=== PATIENT | female | born 1950 | race Hispanic/Latino ===

== ENCOUNTER 2021-05-16 08:51 | Observation (INO) | payer MEDICARE ==
[2021-05-01 11:52] LABS: ANION GAP 15.5 mmol/L (8-16); CALCIUM 9.7 mg/dL (8.4-10.2); CREATININE, SERUM 1.22 mg/dL (0.57-1.11); POTASSIUM 4.5 mmol/L (3.5-5.1)
[~2021-05-16 08:51] MED LIST: AMLODIPINE BESY10 MG PO; ARIMIDEX1 MG PO; BACLOFEN10 MG PO; CYCLOBENZAPRINE10 MG PO; FLONASE ALLERG9.9 ML INH; HYDROCODON-ACE1 EAC9 PO; LASIX40 MG PO; LEVOTHYROXINE75 MCG PO; LEXAPRO20 MG PO; LYRICA50 MG PO; MOBIC7.5 MG PO; NEXIUM40 MG PO; PROLIA60 MG/1 ML IM; ROPIVACAINE 246.25 MG, EPINEPHRINE HCL 1:1000 1ML 0.5 MG, CLONIDINE HCL 0.08 MG, KETORO... INJ ONE; SIMVASTATIN40 MG PO; TRULICITY0.75 MG/0. INJ; VALSARTAN PO; VIBRAMYCIN100 MG PO
[2021-05-16] MEDS ORDERED: SODIUM CHLORIDE 0.9% 50ML 100 ML ONE (10:24)
[2021-05-16] MEDS ORDERED: DEXAMETHASONE SOD PHOS 10 MG/1 ML VIAL ONE (10:47)
[2021-05-16] MEDS ORDERED: GABAPENTIN 300 MG CAP ONE (10:47)
[2021-05-16] MEDS ORDERED: CELECOXIB 200 MG CAP ONE (10:47)
[2021-05-16] MEDS ORDERED: SODIUM CHLORIDE 0.9% 500ML 500 ML ONE (11:01)
[2021-05-16] MEDS ORDERED: TRANEXAMIC ACID 1,000 MG/10 ML ML ONE (11:02)
[2021-05-16] MEDS ORDERED: Vancomycin IV 1,000 MG ONE (11:02)
[2021-05-16] MEDS ORDERED: KETOROLAC TROMETHAMINE 30 MG/ML VIAL IV PRN (13:15)
[2021-05-16] MEDS ORDERED: DIPHENHYDRAMINE HCL INJ 50 MG/ML VIAL IV PRN (13:15)
[2021-05-16] MEDS ORDERED: ONDANSETRON HCL INJ 2MG/ML 2ML 2 MG/ML VIAL IV PRN (13:15)
[2021-05-16] MEDS ORDERED: HYDROCODONE/APAP 5MG-325MG TAB PO PRN (13:15)
[2021-05-16] MEDS ORDERED: DOCUSATE SODIUM 100 MG CAP PO PRN (13:15)
[2021-05-16] MEDS ORDERED: ACETAMINOPHEN 650 MG SUPP PR PRN (13:15)
[2021-05-16 14:29] VITALS: BP 146/67
[2021-05-16 14:38] VITALS: BP 146/67
[2021-05-16 14:42] VITALS: BP 146/67
[2021-05-16] MEDS: Cefazolin 1 GM in SODIUM CHLORIDE 0.9% 50ML 50 ML IV SCH ×2 (14:53→23:09)
[2021-05-16] MEDS: SODIUM CHLORIDE 0.9% 1000ML 1,000 ML IV SCH ×2 (14:53→23:15)
[2021-05-16] MEDS: ASPIRIN 325 MG TAB PO SCH (16:54)
[2021-05-16] MEDS: CELECOXIB 100 MG CAP PO SCH (16:54)
[2021-05-16 20:00] VITALS: BP 140/78
[2021-05-16] MEDS: HYDROCODONE/APAP 7.5MG-325MG 1 EA TAB PO PRN (20:25)
[2021-05-16] MEDS ORDERED: ZOLPIDEM TARTRATE 5 MG TAB PO PRN (21:00)
[2021-05-17] VITALS: BP 132/67
[2021-05-17] MEDS: HYDROCODONE/APAP 7.5MG-325MG 1 EA TAB PO PRN ×3 (02:06→08:40)
[2021-05-17 04:00] VITALS: BP 129/67
[2021-05-17 05:37] LABS: HEMATOCRIT 28.6 % (34.2-44.1); HEMOGLOBIN 9.6 g/dL (12.0-16.0)
[2021-05-17] MEDS: Cefazolin 1 GM in SODIUM CHLORIDE 0.9% 50ML 50 ML IV SCH (06:16)
[2021-05-17 07:21] VITALS: BP 138/82
[2021-05-17 08:06] VITALS: BP 138/82
[2021-05-17] MEDS ORDERED: BACLOFEN 10 MG TAB PO PRN (08:30)
[2021-05-17] MEDS ORDERED: DEXTROSE 50% SYRINGE 50 ML IV PRN (08:30)
[2021-05-17] MEDS ORDERED: CYCLOBENZAPRINE HCL 10 MG TAB PO PRN (08:30)
[2021-05-17] MEDS ORDERED: AMLODIPINE BESYLATE 10 MG TAB PO PRN (08:30)
[2021-05-17] MEDS: ASPIRIN 325 MG TAB PO SCH (08:40)
[2021-05-17] MEDS: CELECOXIB 100 MG CAP PO SCH (08:40)
[2021-05-17] MEDS ORDERED: ESCITALOPRAM OXALATE 10 MG TAB PO SCH (09:00)
[2021-05-17] MEDS ORDERED: PANTOPRAZOLE SOD 40 MG TABEC PO SCH (09:00)
[2021-05-17] MEDS ORDERED: LEVOTHYROXINE SODIUM 75 MCG TAB PO SCH (09:00)
[2021-05-17] MEDS ORDERED: PREGABALIN 50 MG CAP PO SCH (09:00)
[2021-05-17] MEDS ORDERED: ANASTROZOLE 1 MG TAB PO SCH (09:00)
[2021-05-17] MEDS ORDERED: ONDANSETRON HCL 4 MG ORAL DISINTEGRATING TAB PO PRN (10:00)
[2021-05-17 11:28] VITALS: BP 132/57
[2021-05-17] MEDS ORDERED: INSULIN LISPRO 100 UNIT/1 ML 3ML VIAL SQ SCH (11:30)
[2021-05-17] MEDS ORDERED: ACETAMINOPHEN 1000 MG/100 ML IV PRN (13:15)
[2021-05-17] MEDS ORDERED: SIMVASTATIN 40 MG TAB PO SCH (21:00)
[2021-05-18] MEDS ORDERED: LEVOTHYROXINE SODIUM 75 MCG TAB PO SCH (06:00)
== END 2021-05-17 12:51 | disposition home or self-care (01) ==
LOC: OR 08:51 → PACU V 13:01 → MED/SURG 14:15
PROVIDERS: ADMIT Specialist; ATTEND Specialist
DX: M16.11 Unilateral primary osteoarthritis, right hip (principal); E66.01 Morbid (severe) obesity due to excess calories; E11.22 Type 2 diabetes mellitus with diabetic chronic kidney disease; E03.9 Hypothyroidism, unspecified; I12.9 Hypertensive chronic kidney disease with stage 1 through stage 4 chronic kidney disease, or unspecified chronic kidney disease; N18.9 Chronic kidney disease, unspecified; Z96.653 Presence of artificial knee joint, bilateral; Z68.41 Body mass index [BMI] 40.0-44.9, adult; Z01.812 Encounter for preprocedural laboratory examination; Z01.818 Encounter for other preprocedural examination; Z20.822 Contact with and (suspected) exposure to COVID-19; Z85.3 Personal history of malignant neoplasm of breast; E78.5 Hyperlipidemia, unspecified; F41.9 Anxiety disorder, unspecified
CPT/HCPCS: 27130; 36415 ×3; 71046; 72170; 80048; 82948 ×2; 85014; 85018; 86850 ×2; 86900 ×2; 86920 ×2; 97110; 97116; 97139; 97162; 97530; C1713 ×2; C1776 ×3; G0378 ×2; J0171 ×2; J0690 ×2; J1100; J1885 ×3; J2795 ×2; J3370; J7030; J7040; S0164; U0002 ×2